=== PATIENT | female | born 1975 ===

== ENCOUNTER 2020-07-10 10:30 | Inpatient (IN) | payer OTHER ==
[~2020-07-10] VITALS: Ht 162.6 cm; Wt 106.1 kg
[2020-07-10] MEDS ORDERED: LEVO-T25 MCG PO (14:57)
[2020-07-10] MEDS ORDERED: LOSARTAN-HCTZ1 EACH PO (14:57)
[2020-07-10] MEDS ORDERED: INDERAL XL120 MG PO (14:57)
[2020-07-10] MEDS ORDERED: VASOFLEX TABLE1 EACH PO (14:58)
[2020-07-16] MEDS ORDERED: INTESTINEX680 M1 (10:32)
[2020-07-19] MEDS ORDERED: DICLOFENAC SODI75 MG PO (09:22)
[2020-07-19] MEDS ORDERED: HYOSCYAMINE0.125 M1 SL (09:22)
[2020-07-19] MEDS ORDERED: ULTRACET PO (09:22)
== END 2020-07-19 11:32 | disposition home or self-care (01) | DRG 334 ==
LOC: SURH 07-16 09:04 → O/R 07-16 09:04 → SURH 07-16 10:30
PROVIDERS: ADMIT Surgery; ATTEND Surgery
PROC: 0DTP4ZZ Resection of Rectum, Percutaneous Endoscopic Approach (ICD-10-PCS; principal; 2020-07-16 19:15)
DX: K57.32 Diverticulitis of large intestine without perforation or abscess without bleeding (principal); R10.13 Epigastric pain; R19.5 Other fecal abnormalities; I10 Essential (primary) hypertension; E03.8 Other specified hypothyroidism; E66.01 Morbid (severe) obesity due to excess calories; G47.33 Obstructive sleep apnea (adult) (pediatric)